=== PATIENT | male | born 1970 | race Caucasian/White ===

== ENCOUNTER 2017-07-01 10:20 | Emergency (ER) | payer SELFPAY ==
[~2017-07-01 10:20] MED LIST: Iopamidol 370 76% 100 ML VIAL ONE
[2017-07-01 11:06] LABS: #Basophils 0.3 thou/uL (0.0-0.2); #Eosinphils 0.2 thou/uL (0.0-0.7); #Lymphocytes 2.3 thou/uL (1.20-3.40); #Monocytes 1.2 thou/uL (0.11-0.59); %Basophils 1.4 % (0.0-1.0); %Eosinophils 1.2 % (0.0-10.0); %Lymphocytes 12.7 % (21.0-51.0); %Monocytes 6.9 % (0.0-10.0); Hematocrit 41.9 % (42.0-52.0); Mean Platelet Volume 8.4 fL (7.4-10.4); Red Blood Cell (RBC) Count 4.61 mill/uL (4.70-6.10)
[2017-07-01 11:06] LABS: Bilirubin Negative (Negative); Blood, Urine Negative (Negative); Glucose, Urine (Dipstick) Negative (Negative); Ketone, Urine Negative (Negative); Nitrite Negative (Negative); Protein, Urine (Dipstick) Negative (Neg-Trace); Urobilinogen 0.2 mg/dL (0.2-1.0)
[2017-07-01 11:18] LABS: ALT (SGPT) 19 U/L (8-55); AST (SGOT) 10 U/L (5-34); Alkaline Phosphatase 80 U/L (40-150); Anion Gap 14 mmol/L (10-20); BUN (Urea Nitrogen) 14 mg/dL (8.9-20.6); Bilirubin, Total 0.4 mg/dL (0.2-1.2); Calc. Creatinine Clearance 0 mL/min (70-130); Calcium 9.5 mg/dL (7.8-10.44); Carbon Dioxide 25 mmol/L (22-29); Chloride 101 mmol/L (98-107); Estimated GFR-MDRD Greater than 90; Globulin 3.2 g/dL (2.4-3.5); Lipase 16 U/L (8-78); Protein, Total 7.1 g/dL (6.0-8.3)
[2017-07-01] MEDS ORDERED: Ondansetron HCl/PF 4 MG/2 ML Vial ONE (11:45)
[2017-07-01] MEDS ORDERED: Piperacillin/Tazobactam 4.5 GM VIAL ONE (13:09)
--- NOTE | 2017-07-01 13:23 | CT ---
CT ABDOMEN AND PELVIS: 07/01/2017 PROVIDED CLINICAL HISTORY: Abdominal pain. FINDINGS: The visualized lung bases are free of significant opacity. The solid abdominal organs are suboptimally evaluated without IV contrast material but demonstrate a n unremarkable, unenhanced CT appearance. There is prominent mural thickening and pericolonic fat stranding involving the descending colon/sig moid colon junction. There is no evidence for extraluminal gas or focal extraluminal fluid collecti on. Numerous colonic diverticula are seen. There is no bowel dilatation, additional inflammatory fat stranding, free fluid, or free air apparen t. The osseous structures demonstrate no concerning osteoblastic or osteolytic lesions. IMPRESSION: Findings compatible with uncomplicated diverticulitis involving the descending colon/sigmoid colon j unction. Given the conspicuous mural thickening, the less likely possibility of an inflammatory car cinoma should be excluded with colonoscopy, following treatment. POS: OFF
== END 2017-07-01 14:30 | disposition home or self-care (01) ==
LOC: SCSER 10:20
DX: K57.92 Diverticulitis of intestine, part unspecified, without perforation or abscess without bleeding (principal); F17.220 Nicotine dependence, chewing tobacco, uncomplicated
CPT/HCPCS: 74176; 80053; 81003; 83690; 85025; 96361; 96365; 96375; 99406; J2405; J2543

== ENCOUNTER 2020-11-10 09:22 | Outpatient (CLI) | payer BC ==
[2020-11-10 14:25] LABS: SARS-CoV-2 NAA Rapid Test Not Detected (NotDetected)
== END 2020-11-10 09:23 | disposition home or self-care (01) ==
LOC: LABBT 09:22
PROVIDERS: ATTEND Internal Medicine Gastroenterology
DX: Z01.812 Encounter for preprocedural laboratory examination (principal); D50.0 Iron deficiency anemia secondary to blood loss (chronic); K92.2 Gastrointestinal hemorrhage, unspecified; Z20.822 Contact with and (suspected) exposure to COVID-19
CPT/HCPCS: 0240U

== ENCOUNTER 2020-11-10 11:50 | Day surgery (SDC) | payer BC ==
[2020-11-10] MEDS ORDERED: PROPOFOL 200 MG/20 ML VIAL ONE (14:58)
[2020-11-10] MEDS ORDERED: Sodium Chloride 0.9% (PF) 10 ML VIAL FS PRN (16:30)
[2020-11-10] MEDS ORDERED: Pantoprazole 40 MG VIAL IVP SCH (16:30)
[2020-11-10] MEDS ORDERED: Sodium Chloride 0.9% 100 ML ONE (17:17)
[2020-11-10 17:54] LABS: Hemoglobin 7.2 g/dL (14.0-18.0)
== END 2020-11-10 18:15 | disposition home or self-care (01) ==
LOC: SDC 11:50
PROVIDERS: ATTEND Internal Medicine Gastroenterology
PROC: 0DJ08ZZ Inspection of Upper Intestinal Tract, Via Natural or Artificial Opening Endoscopic (ICD-10-PCS; principal; 2020-11-10)
PROC: 0DJD8ZZ Inspection of Lower Intestinal Tract, Via Natural or Artificial Opening Endoscopic (ICD-10-PCS; principal; 2020-11-10)
DX: D62 Acute posthemorrhagic anemia (principal); K92.2 Gastrointestinal hemorrhage, unspecified; K92.1 Melena; Z98.84 Bariatric surgery status; Z20.822 Contact with and (suspected) exposure to COVID-19; Z01.812 Encounter for preprocedural laboratory examination
CPT/HCPCS: 0240U; 36415; 36430; 85014; 85018; 86850; 86900; 86901; C9113; J2704; J3490; P9016

== ENCOUNTER 2020-11-14 09:55 | Inpatient (IN) | payer BC ==
[~2020-11-14 09:55] MED LIST changes: +Heparin 1,000 UNITS/ML VIAL ONE; -Iopamidol 370 76% 100 ML VIAL ONE
[2020-11-14 10:43] LABS: #Basophils 0.1 thou/uL (0.0-0.2); #Eosinphils 0.2 thou/uL (0.0-0.7); #Lymphocytes 1.5 thou/uL (1.20-3.40); #Monocytes 0.5 thou/uL (0.11-0.59); #Neutrophils 5.2 thou/uL (1.40-6.50); %Basophils 0.9 % (0.0-1.0); %Eosinophils 3.3 % (0.0-10.0); %Lymphocytes 19.5 % (21.0-51.0); %Neutrophils 69.3 % (42.0-75.0)
[2020-11-14 10:48] LABS: Hemoglobin 5.3 g/dL (14.0-18.0); Mean Corpuscular HGB CONC 31.1 g/dL (32.0-36.0); Mean Corpuscular Hemoglobin 26.7 pg (27.0-31.0); Mean Corpuscular Volume 85.7 fL (78.0-98.0); Platelet Count 321 thou/uL (130-400); RBC Distribution Width 22.6 % (11.5-14.5); Red Blood Cell (RBC) Count 1.99 mill/uL (4.70-6.10); White Blood Cell (WBC) Count 7.5 thou/uL (4.8-10.8)
[2020-11-14 11:13] LABS: ALT (SGPT) 12 U/L (8-55); AST (SGOT) 11 U/L (5-34); Albumin 3.5 g/dL (3.5-5.0); Alkaline Phosphatase 100 U/L (40-110); Anion Gap 11 mmol/L (10-20); BUN (Urea Nitrogen) 13 mg/dL (8.9-20.6); Bilirubin, Total 0.3 mg/dL (0.2-1.2); Calc. Creatinine Clearance 0 mL/min (70-130); Carbon Dioxide 25 mmol/L (22-29); Chloride 106 mmol/L (98-107); Glucose 128 mg/dL (70-105); Lipase 28 U/L (8-78); Potassium 3.7 mmol/L (3.5-5.1); Protein, Total 5.5 g/dL (6.0-8.3); Sodium 138 mmol/L (136-145)
[2020-11-14 11:26] LABS: Anisocytosis MODERATE=16-30 cells (100X) (0-5/hpf); Hypochromia SLIGHT = 6-15 cells (100X) (0-5/hpf); Polychromasia SLIGHT = 2-3 cells (100X) (0-2/hpf)
[2020-11-14 11:27] LABS: Bilirubin Negative (Negative); Blood, Urine Negative (Negative); Clarity Turbid (Clear); Glucose, Urine (Dipstick) Normal (Negative); Ketone, Urine Negative (Negative); Leukocyte Negative Leu/uL (Negative); Nitrite Negative (Negative); Protein, Urine (Dipstick) Negative (Neg-Trace); Specific Gravity, Urine 1.013 (1.002-1.036); Urobilinogen Normal mg/dL (Less than 2)
[2020-11-14] MEDS ORDERED: Ondansetron ODT 4 MG TAB PO PRN ×2 (12:23→21:56)
[2020-11-14] MEDS ORDERED: Sodium Chloride 0.65% Nasal 44 ML BOT EA NARE PRN ×2 (12:23→21:58)
[2020-11-14] MEDS ORDERED: Zolpidem Tartrate 5 MG TAB PO PRN (12:23)
[2020-11-14] MEDS ORDERED: HYDROcodone/Acetaminophen 5/325 mg Tablet PO PRN ×2 (12:23→21:56)
[2020-11-14] MEDS ORDERED: Acetaminophen 325 MG TAB PO PRN ×2 (12:23→21:56)
[2020-11-14] MEDS ORDERED: Loperamide HCl 2 MG CAP PO PRN ×2 (12:23→21:57)
[2020-11-14] MEDS ORDERED: Loratadine 10 MG TAB PO PRN ×2 (12:23→21:58)
[2020-11-14] MEDS ORDERED: hydrALAZINE 20 MG/ML VIAL SLOW IVP PRN ×2 (12:23→21:58)
[2020-11-14] MEDS ORDERED: Bisacodyl 10 MG SUPP PR PRN ×2 (12:23→21:57)
[2020-11-14] MEDS ORDERED: Bisacodyl 5 MG TAB PO PRN ×2 (12:23→21:57)
[2020-11-14] MEDS ORDERED: Senokot S 8.6-50 MG TAB PO PRN ×2 (12:23→21:57)
[2020-11-14] MEDS ORDERED: Guaifenesin DM 100-10/5 ML UDCUP PO PRN ×2 (12:23→21:57)
[2020-11-14] MEDS ORDERED: Calcium Carbonate 500 MG ChewTAB PO PRN ×2 (12:23→21:56)
[2020-11-14] MEDS ORDERED: Ondansetron PF 4 MG/2 ML Vial IVP PRN ×2 (12:23→21:56)
[2020-11-14] MEDS ORDERED: Dextrose 5 % And 0.9 % NaCl 1,000 ML IV SCH (12:45)
[2020-11-14 16:10] VITALS: BMI 32.4
[2020-11-14] MEDS: Dextrose 5 % And 0.9 % NaCl 1,000 ML IV SCH (17:30)
[2020-11-14] MEDS ORDERED: Pantoprazole 40 MG VIAL IVP SCH (21:00)
[2020-11-14] MEDS: Pantoprazole 40 MG VIAL IVP SCH (22:12)
[2020-11-14] MEDS: Zolpidem Tartrate 5 MG TAB PO PRN (22:25)
[2020-11-15] MEDS: Dextrose 5 % And 0.9 % NaCl 1,000 ML IV SCH ×2 (01:46→13:36)
[2020-11-15 04:28] LABS: #Basophils 0.1 thou/uL (0.0-0.2); #Eosinphils 0.3 thou/uL (0.0-0.7); #Lymphocytes 1.8 thou/uL (1.20-3.40); #Monocytes 0.9 thou/uL (0.11-0.59); #Neutrophils 3.8 thou/uL (1.40-6.50); %Basophils 0.9 % (0.0-1.0); %Eosinophils 4.2 % (0.0-10.0); %Lymphocytes 26.1 % (21.0-51.0); %Monocytes 13.1 % (0.0-10.0); %Neutrophils 55.7 % (42.0-75.0); Hemoglobin 6.4 g/dL (14.0-18.0); Mean Corpuscular HGB CONC 32.2 g/dL (32.0-36.0); Mean Platelet Volume 9.9 fL (7.4-10.4); Platelet Count 307 thou/uL (130-400); RBC Distribution Width 20.2 % (11.5-14.5); White Blood Cell (WBC) Count 6.8 thou/uL (4.8-10.8)
[2020-11-15] MEDS: Pantoprazole 40 MG VIAL IVP SCH ×2 (08:02→21:11)
[2020-11-15] MEDS: Zolpidem Tartrate 5 MG TAB PO PRN (21:11)
[2020-11-15 22:03] LABS: Hemoglobin 7.5 g/dL (14.0-18.0)
[2020-11-16 05:42] LABS: Hemoglobin 7.2 g/dL (14.0-18.0)
[2020-11-16] MEDS: Pantoprazole 40 MG VIAL IVP SCH ×2 (08:03→20:06)
[2020-11-16] MEDS ORDERED: Iopamidol-370 76% 500 ML 1 ML ONE (15:02)
[2020-11-16 19:06] LABS: Hemoglobin 7.7 g/dL (14.0-18.0)
[2020-11-16] MEDS: Zolpidem Tartrate 5 MG TAB PO PRN (20:06)
[2020-11-17 09:04] VITALS: TEMP 98.1
[2020-11-17] MEDS: Pantoprazole 40 MG VIAL IVP SCH (09:09)
[2020-11-17 10:59] LABS: Hemoglobin 7.4 g/dL (14.0-18.0)
[2020-11-17 13:16] VITALS: BP 121/74
== END 2020-11-17 13:23 | disposition home or self-care (01) | DRG 378 ==
LOC: ERS 09:55 → T4-B 12:18 → ERS 12:48
PROVIDERS: ADMIT Internal Medicine; ATTEND Hospitalist
PROC: 30233N1 Transfusion of Nonautologous Red Blood Cells into Peripheral Vein, Percutaneous Approach (ICD-10-PCS; principal; 2020-11-14)
DX: K92.2 Gastrointestinal hemorrhage, unspecified (principal); D62 Acute posthemorrhagic anemia; F90.9 Attention-deficit hyperactivity disorder, unspecified type; F17.220 Nicotine dependence, chewing tobacco, uncomplicated; I10 Essential (primary) hypertension; Z88.8 Allergy status to other drugs, medicaments and biological substances; Z87.11 Personal history of peptic ulcer disease; Z98.84 Bariatric surgery status; Z90.49 Acquired absence of other specified parts of digestive tract; Z79.899 Other long term (current) drug therapy
CPT/HCPCS: 36415; 36430; 71045; 74177; 78278; 80053; 81003; 83690; 84484; 85014; 85018; 85025; 86850; 86900; 86901; 93306; A9604; C9113; J1644; P9016; Q9967

== ENCOUNTER 2020-11-24 08:33 | Day surgery (SDC) | payer BC ==
[2020-11-24] MEDS ORDERED: Acetaminophen 325 MG TAB PO PRN (09:00)
[2020-11-24] MEDS ORDERED: Sodium Chloride 0.9% 20 ML ONE (09:01)
[2020-11-24] MEDS ORDERED: Ferumoxytol (ERSD) 510 MG in Sodium Chloride 0.9% 150 ML IVPB SCH (09:15)
[2020-11-24 09:44] VITALS: BP 130/77; TEMP 98.3
== END 2020-11-24 14:05 | disposition home or self-care (01) ==
LOC: ONC/OP 08:33
PROVIDERS: ATTEND Internal Medicine Gastroenterology
DX: D50.9 Iron deficiency anemia, unspecified (principal); K92.2 Gastrointestinal hemorrhage, unspecified; Z88.5 Allergy status to narcotic agent; Z88.8 Allergy status to other drugs, medicaments and biological substances
CPT/HCPCS: 96365; J3490; Q0139

== ENCOUNTER 2020-12-01 08:34 | Day surgery (SDC) | payer BC ==
[~2020-12-01 08:34] MED LIST changes: +Acetaminophen 325 MG TAB PO SCH; +Ferumoxytol (NON ERSD) 510 MG in Sodium Chloride 0.9% 100 ML IVPB SCH; +Ferumoxytol (NON ERSD) 510 MG in Sodium Chloride 0.9% 150 ML IVPB SCH; -Heparin 1,000 UNITS/ML VIAL ONE
[2020-12-01 08:48] VITALS: BP 138/80; TEMP 98.1
[2020-12-01] MEDS ORDERED: Sodium Chloride 0.9% 20 ML ONE (08:50)
== END 2020-12-01 09:53 | disposition home or self-care (01) ==
LOC: ONC/OP 08:34
PROVIDERS: ATTEND Internal Medicine Gastroenterology
DX: D50.9 Iron deficiency anemia, unspecified (principal); K92.2 Gastrointestinal hemorrhage, unspecified; Z88.5 Allergy status to narcotic agent; Z88.6 Allergy status to analgesic agent; Z88.8 Allergy status to other drugs, medicaments and biological substances
CPT/HCPCS: 96365; J3490; Q0138

== ENCOUNTER 2021-10-17 07:06 | Outpatient (CLI) | payer BC | END 2021-10-17 07:07 | disposition home or self-care (01) | LOC: BICULT 07:06 | PROVIDERS: ATTEND Family Medicine | DX: M79.5 Residual foreign body in soft tissue (principal) | CPT/HCPCS: 76999 ==

== ENCOUNTER 2022-01-11 17:37 | Inpatient (IN) | payer BC ==
[2022-01-11] MEDS ORDERED: Pantoprazole 40 MG VIAL ONE (18:13)
[2022-01-11 18:26] LABS: #Basophils 0.1 thou/uL (0.0-0.2); #Eosinphils 0.1 thou/uL (0.0-0.7); #Lymphocytes 1.3 thou/uL (1.20-3.40); #Monocytes 0.5 thou/uL (0.11-0.59); #Neutrophils 4.3 thou/uL (1.40-6.50); %Basophils 0.8 % (0.0-1.0); %Eosinophils 1.8 % (0.0-10.0); %Lymphocytes 20.3 % (21.0-51.0); %Monocytes 8.6 % (0.0-10.0); %Neutrophils 68.5 % (42.0-75.0); Hemoglobin 5.9 g/dL (14.0-18.0); Mean Corpuscular HGB CONC 31.8 g/dL (32.0-36.0); Mean Corpuscular Hemoglobin 29.5 pg (27.0-31.0); Mean Corpuscular Volume 92.7 fL (78.0-98.0); Mean Platelet Volume 8.2 fL (7.4-10.4); Platelet Count 251 thou/uL (130-400); RBC Distribution Width 16.5 % (11.5-14.5); Red Blood Cell (RBC) Count 2.01 mill/uL (4.70-6.10); White Blood Cell (WBC) Count 6.3 thou/uL (4.8-10.8)
[2022-01-11 18:31] LABS: INR-International Normal Ratio 1.1; PTT 24.7 sec (22.9-36.1); Prothrombin Time 13.8 sec (12.0-14.7)
[2022-01-11 18:43] LABS: ALT (SGPT) 17 U/L (8-55); AST (SGOT) 15 U/L (5-34); Albumin 3.3 g/dL (3.5-5.0); Alkaline Phosphatase 103 U/L (40-110); Anion Gap 12 mmol/L (10-20); BUN (Urea Nitrogen) 13 mg/dL (8.9-20.6); Bilirubin, Total Less than 0.2 mg/dL (0.2-1.2); Calc. Creatinine Clearance 0 mL/min (70-130); Calcium 7.9 mg/dL (7.8-10.44); Carbon Dioxide 21 mmol/L (22-29); Chloride 112 mmol/L (98-107); Glucose 77 mg/dL (70-105); Protein, Total 5.3 g/dL (6.0-8.3); Sodium 141 mmol/L (136-145)
[2022-01-11] MEDS ORDERED: Pantoprazole 80 MG, Admixture Fee 1 EACH in Sodium Chloride 0.9% 100 ML IVPB SCH (18:45)
[2022-01-11] MEDS ORDERED: Sodium Chloride 0.9% 1,000 ML IV SCH (20:15)
[2022-01-11] MEDS ORDERED: Acetaminophen 325 MG TAB PO PRN (20:15)
[2022-01-11] MEDS ORDERED: Ondansetron PF 4 MG/2 ML Vial IVP PRN (20:15)
[2022-01-11] MEDS ORDERED: Ondansetron ODT 4 MG TAB SL PRN (20:15)
[2022-01-11] MEDS ORDERED: Pantoprazole 80 MG in Sodium Chloride 0.9% 100 ML IVPB SCH (21:33)
[2022-01-11 22:26] VITALS: BMI 31.1
[2022-01-11] MEDS ORDERED: Lidocaine 2% Viscous Solution 10 ML, Aluminum & Magnesium Hydroxide 30 ML SSW SCH (23:30)
[2022-01-12] MEDS ORDERED: Lorazepam 2 MG/ML VIAL IM PRN (01:33)
[2022-01-12] MEDS ORDERED: Lorazepam 1 MG TAB PO PRN (01:33)
[2022-01-12] MEDS ORDERED: Ondansetron ODT 4 MG TAB PO PRN (01:33)
[2022-01-12] MEDS ORDERED: Electrolyte Replacement Protocol 1 EACH FS SCH (01:45)
[2022-01-12] MEDS: Thiamine HCl 200 MG/2 ML VIAL SLOW IVP SCH (02:10)
[2022-01-12] MEDS: Lorazepam 1 MG TAB PO SCH ×4 (02:11→20:55)
[2022-01-12 02:50] LABS: #Basophils 0.1 thou/uL (0.0-0.2); #Eosinphils 0.1 thou/uL (0.0-0.7); #Lymphocytes 1.9 thou/uL (1.20-3.40); #Monocytes 0.8 thou/uL (0.11-0.59); #Neutrophils 6.4 thou/uL (1.40-6.50); %Basophils 0.5 % (0.0-1.0); %Eosinophils 1.5 % (0.0-10.0); %Lymphocytes 20.6 % (21.0-51.0); %Monocytes 8.9 % (0.0-10.0); %Neutrophils 68.4 % (42.0-75.0); Hemoglobin 6.4 g/dL (14.0-18.0); Mean Corpuscular HGB CONC 31.8 g/dL (32.0-36.0); Mean Corpuscular Hemoglobin 29.6 pg (27.0-31.0); Mean Corpuscular Volume 93.2 fL (78.0-98.0); Mean Platelet Volume 8.3 fL (7.4-10.4); Platelet Count 247 thou/uL (130-400); RBC Distribution Width 16.3 % (11.5-14.5); Red Blood Cell (RBC) Count 2.16 mill/uL (4.70-6.10); White Blood Cell (WBC) Count 9.4 thou/uL (4.8-10.8)
[2022-01-12 03:20] LABS: Anion Gap 10 mmol/L (10-20); BUN (Urea Nitrogen) 22 mg/dL (8.9-20.6); Calc. Creatinine Clearance 164 mL/min (70-130); Calcium 7.8 mg/dL (7.8-10.44); Carbon Dioxide 22 mmol/L (22-29); Chloride 110 mmol/L (98-107); Glucose 104 mg/dL (70-105); Potassium 4.1 mmol/L (3.5-5.1); Sodium 138 mmol/L (136-145)
[2022-01-12] MEDS ORDERED: Morphine 2 MG/ML VIAL SLOW IVP PRN (03:47)
[2022-01-12] MEDS: Multivit, Therapeutic 1 TAB PO SCH (07:56)
[2022-01-12] MEDS: Folic Acid 1 MG TAB PO SCH (07:56)
[2022-01-12] MEDS ORDERED: Multivitamin W/ Minerals 1 TAB PO SCH (09:00)
[2022-01-12] MEDS ORDERED: Thiamine 100 MG TAB PO SCH (09:00)
[2022-01-12] MEDS ORDERED: Folic Acid 1 MG TAB PO SCH (09:00)
[2022-01-12] MEDS: Sodium Chloride 0.9% 1,000 ML IV SCH ×2 (12:36→20:55)
[2022-01-12] MEDS: oxyCODONE/Acetaminophen 5 mg/325 mg Tablet PO PRN ×3 (12:41→21:24)
[2022-01-12 13:23] LABS: Hemoglobin 5.6 g/dL (14.0-18.0)
[2022-01-12 21:47] LABS: SARS-CoV-2 PCR by NAA Not Detected (NotDetected)
[2022-01-12 22:47] LABS: Hemoglobin 7.1 g/dL (14.0-18.0); Platelet Count 229 thou/uL (130-400)
[2022-01-13 00:28] LABS: Hemoglobin 5.8 g/dL (14.0-18.0)
[2022-01-13] MEDS: Thiamine HCl 200 MG/2 ML VIAL SLOW IVP SCH (01:16)
[2022-01-13] MEDS: Lorazepam 1 MG TAB PO SCH ×3 (01:16→14:10)
[2022-01-13] MEDS: oxyCODONE/Acetaminophen 5 mg/325 mg Tablet PO PRN ×4 (01:16→14:06)
[2022-01-13] MEDS ORDERED: Lorazepam 1 MG TAB PO PRN (01:33)
[2022-01-13 06:59] LABS: Hemoglobin 7.2 g/dL (14.0-18.0); Platelet Count 180 thou/uL (130-400)
[2022-01-13] MEDS: Multivit, Therapeutic 1 TAB PO SCH (08:12)
[2022-01-13] MEDS: Sodium Chloride 0.9% 1,000 ML IV SCH (08:12)
[2022-01-13] MEDS: Folic Acid 1 MG TAB PO SCH (08:12)
[2022-01-13 12:44] LABS: Hemoglobin 6.4 g/dL (14.0-18.0)
[2022-01-13] MEDS ORDERED: Octreotide Acetate 1,250 MCG in Sodium Chloride 0.9% 250 ML 250 ML IVPB SCH (12:45)
[2022-01-13 17:03] VITALS: BP 154/83; TEMP 97.6
[2022-01-14] MEDS ORDERED: Lorazepam 1 MG TAB PO PRN (01:33)
[2022-01-14] MEDS ORDERED: Lorazepam 0.5 MG TAB PO SCH (01:45)
[2022-01-15] MEDS ORDERED: Lorazepam 0.5 MG TAB PO PRN (01:33)
[2022-01-15] MEDS ORDERED: Thiamine 100 MG TAB PO SCH (01:45)
== END 2022-01-13 17:14 | disposition short-term general hospital (02) | DRG 378 ==
LOC: ERS 17:37 → T4-B 18:40
PROVIDERS: ADMIT Family Medicine; ATTEND Family Medicine
PROC: 30233N1 Transfusion of Nonautologous Red Blood Cells into Peripheral Vein, Percutaneous Approach (ICD-10-PCS; principal; 2022-01-11)
DX: K92.1 Melena (principal); D62 Acute posthemorrhagic anemia; Z20.822 Contact with and (suspected) exposure to COVID-19; F10.20 Alcohol dependence, uncomplicated; F17.220 Nicotine dependence, chewing tobacco, uncomplicated; F90.9 Attention-deficit hyperactivity disorder, unspecified type; Z98.84 Bariatric surgery status; Z87.11 Personal history of peptic ulcer disease; Z90.49 Acquired absence of other specified parts of digestive tract; Z90.89 Acquired absence of other organs; Z98.890 Other specified postprocedural states; Z79.899 Other long term (current) drug therapy
CPT/HCPCS: 36415; 36416; 36430; 80048; 80053; 82274; 85025; 85610; 85730; 86850; 86900; 86901; 93005; 96361; 96374; C9113; J2270; J3411; J3490; J7050; P9016; U0003; U0005

== ENCOUNTER 2023-03-17 15:58 | Outpatient (CLI) | payer BC, OTHER ==
[2023-03-17 17:08] LABS: #Basophils 0.1 10x3/uL (0.0-0.2); #Eosinphils 0.2 10x3/uL (0.0-0.5); #Monocytes 0.7 10x3/uL (0.0-1.1); #Neutrophils 4.4 10x3/uL (1.5-8.4); %Eosinophils 3.5 % (0.0-6.0); %Lymphocytes 22.1 % (18.0-47.0); %Monocytes 10.1 % (0.0-10.0); Hemoglobin 10.6 g/dL (13.5-17.5); Mean Corpuscular HGB CONC 30.9 g/dL (32.0-36.0); Mean Corpuscular Volume 100.3 fl (81.2-95.1); Mean Platelet Volume 11.7 fl (7.4-10.4); Platelet Count 299 10x3/uL (150-450); RBC Distribution Width 12.5 % (11.5-14.5); Red Blood Cell (RBC) Count 3.42 10x6/uL (4.32-5.72); White Blood Cell (WBC) Count 6.9 10x3/uL (3.5-10.5)
== END 2023-03-17 15:59 | disposition home or self-care (01) ==
LOC: LABBT 15:58
PROVIDERS: ATTEND Orthopaedic Surgery
DX: Z01.812 Encounter for preprocedural laboratory examination (principal); S83.242A Other tear of medial meniscus, current injury, left knee, initial encounter
CPT/HCPCS: 85025

== ENCOUNTER → 2023-03-20 | Day surgery (SDC) | payer OTHER ==
[2023-03-17 16:37] VITALS: BMI 34.7
[~2023-03-20] MED LIST changes: -Acetaminophen 325 MG TAB PO SCH; +Acetaminophen 500 MG TAB ONE; +Bupivacaine PF 0.5% 30 ML VIAL ONE; +CEFAZOLIN 2 GM VIAL ONE; +Dexamethasone 20 MG/5 ML VIAL ONE; +EPINEPHrine 1 MG/ML AMP ONE; -Ferumoxytol (NON ERSD) 510 MG in Sodium Chloride 0.9% 100 ML IVPB SCH; -Ferumoxytol (NON ERSD) 510 MG in Sodium Chloride 0.9% 150 ML IVPB SCH; +HYDROcodone/Acetaminophen 5/325 mg Tablet ONE; +Lidocaine 1% (PF) 30 ML VIAL ONE; +Lidocaine 2% PF 5 ML VIAL ONE; +Midazolam HCl 2 mg/2 ml Vial ONE; +Ondansetron PF 4 MG/2 ML Vial ONE; +PROPOFOL 20 ML ONE; +PROPOFOL 200 MG/20 ML VIAL ONE; +Sodium Chloride 0.9% 100 ML ONE; +fentaNYL 50 mcg/mL 1 mL Vial ONE
== END ==
LOC: SDC 08:24
PROVIDERS: ATTEND Orthopaedic Surgery
PROC: 0SBD4ZZ Excision of Left Knee Joint, Percutaneous Endoscopic Approach (ICD-10-PCS; principal; 2023-03-20)
DX: S83.232A Complex tear of medial meniscus, current injury, left knee, initial encounter (principal); S72.435A Nondisplaced fracture of medial condyle of left femur, initial encounter for closed fracture; F90.9 Attention-deficit hyperactivity disorder, unspecified type; I10 Essential (primary) hypertension; Z87.19 Personal history of other diseases of the digestive system; Z90.89 Acquired absence of other organs; Z87.891 Personal history of nicotine dependence; Z79.899 Other long term (current) drug therapy; X58.XXXA Exposure to other specified factors, initial encounter
CPT/HCPCS: J0171; J1100; J2001; J2250; J2405; J2704; J3010; J3490; S0020

== ENCOUNTER 2025-06-23 06:56 | Day surgery (SDC) | payer BC ==
[2025-06-22 10:13] VITALS: BMI 25.7
[2025-06-23] MEDS ORDERED: Ketamine In 0.9 % NaCl 50 MG/5 ML SYRINGE ONE (08:46)
[2025-06-23] MEDS ORDERED: Lidocaine 1% PF 5 ML VIAL ONE (08:46)
[2025-06-23] MEDS ORDERED: Ondansetron PF 4 MG/2 ML Vial ONE (08:52)
[2025-06-23] MEDS ORDERED: PROPOFOL 200 MG/20 ML VIAL ONE (09:04)
== END 2025-06-23 10:15 | disposition home or self-care (01) ==
LOC: SDC 06:56
PROVIDERS: ATTEND Internal Medicine Gastroenterology
PROC: 0DJ08ZZ Inspection of Upper Intestinal Tract, Via Natural or Artificial Opening Endoscopic (ICD-10-PCS; principal; 2025-06-23)
DX: R10.13 Epigastric pain (principal); K21.9 Gastro-esophageal reflux disease without esophagitis; K57.92 Diverticulitis of intestine, part unspecified, without perforation or abscess without bleeding; Z79.899 Other long term (current) drug therapy; Z91.041 Radiographic dye allergy status; Z88.8 Allergy status to other drugs, medicaments and biological substances; Z98.84 Bariatric surgery status
CPT/HCPCS: J1100; J2405; J2704; J3490

== ENCOUNTER 2025-07-08 08:35 | Day surgery (SDC) | payer BC ==
[2025-07-08 09:51] LABS: #Basophils 0.05 10x3/uL (0.0-0.2); #Eosinophils 0.08 10x3/uL (0.0-0.7); #Monocytes 0.56 10x3/uL (0.11-0.59); #Neutrophils 3.80 10x3/uL (1.40-6.50); %Basophils 0.9 % (0.0-1.0); %Eosinophils 1.4 % (0.0-10.0); %Lymphocytes 20.6 % (21.0-51.0); %Monocytes 9.9 % (0.0-10.0); %Neutrophils 66.8 % (42.0-75.0); Hematocrit 27.0 % (42.0-52.0); Hemoglobin 8.6 g/dL (14.0-18.0); Mean Corpuscular Hemoglobin 33.1 pg (27.0-31.0); Mean Corpuscular Volume 103.8 fL (78.0-98.0); Platelet Count 349 10x3/uL (130-400); Red Blood Cell (RBC) Count 2.60 mill/uL (4.70-6.10); White Blood Cell (WBC) Count 5.68 10x3/uL (4.8-10.8)
[2025-07-08] MEDS ORDERED: Acetaminophen 325 MG TAB ONE (10:12)
[2025-07-08] MEDS: Acetaminophen 325 MG TAB PO SCH (10:14)
[2025-07-08 15:31] VITALS: BP 117/64; TEMP 98.1
== END 2025-07-08 12:54 | disposition home or self-care (01) ==
LOC: ONC/OP 08:35
PROVIDERS: ATTEND Physician Assistant Medical
DX: D64.9 Anemia, unspecified (principal)
CPT/HCPCS: 36430; 85025; 86850; 86900; 86901; P9016